=== PATIENT | male | born 1975 | race Caucasian/White ===

== ENCOUNTER → 2016-06-21 | Outpatient (CLI) | payer BC ==
[~2016-06-21] MED LIST: ATOR10TA82 PO; IBUP-103 PO
[2016-06-21 13:56] LABS: CHOLESTEROL 242 mg/dl (0-200); CHOLESTEROL/HDL RATIO 4.8; HDL CHOLESTEROL 50 mg/dl; TRIGLYCERIDES 81 mg/dl (0-150); VERY LOW DENSITY LIPOPROT CALC 16 mg/dl
== END | disposition home or self-care (01) ==
LOC: C.LABSPEC 12:30
PROVIDERS: ATTEND Internal Medicine
DX: E78.5 Hyperlipidemia, unspecified (principal)

== ENCOUNTER → 2016-12-28 | Outpatient (CLI) | payer BC ==
[~2016-12-28] MED LIST changes: -ATOR10TA82 PO; +ATOR10TA88 PO
[2016-12-28 13:23] LABS: ALT/SGPT 64 U/L (12-78); AST/SGOT 27 U/L (15-37); BLOOD UREA NITROGEN 10 mg/dl (7-18); BUN/CREATININE RATIO 9.4 (10-20); CALCIUM 9.1 mg/dl (8.5-10.1); CARBON DIOXIDE 27 mmol/L (21-32); CHLORIDE 107 mmol/L (98-107); CHOLESTEROL 228 mg/dl (0-200); CREATININE 1.08 mg/dl (0.60-1.40); GLUCOSE 83 mg/dl (70-99); POTASSIUM 4.3 mmol/L (3.5-5.1); SODIUM 140 mmol/L (136-145); TRIGLYCERIDES 114 mg/dl (0-150); VERY LOW DENSITY LIPOPROT CALC 23 mg/dl
[2016-12-28 13:25] LABS: ALB/GLOB RATIO 1.2 (0.9-2); ALKALINE PHOSPHATASE 94 U/L (45-117); HDL CHOLESTEROL 38 mg/dl
== END | disposition home or self-care (01) ==
LOC: C.LABSPEC 12:04
PROVIDERS: ATTEND Internal Medicine
DX: E78.5 Hyperlipidemia, unspecified (principal)

== ENCOUNTER → 2017-07-05 | Outpatient (CLI) | payer OTHER ==
[~2017-07-05] MED LIST changes: +ATOR10TA82 PO; -ATOR10TA88 PO
[2017-07-05 14:04] LABS: CHOLESTEROL 211 mg/dl (0-200); LDL CHOLESTEROL (DIRECT) 165 mg/dl
== END | disposition home or self-care (01) ==
LOC: C.LABSPEC 12:23
PROVIDERS: ATTEND Internal Medicine
DX: E78.5 Hyperlipidemia, unspecified (principal)

== ENCOUNTER 2017-10-15 13:06 | Emergency (ER) | payer OTHER ==
[~2017-10-15] VITALS: Ht 172.7 cm; Wt 80.3 kg
[2017-10-15 13:10] VITALS: TEMP 36.8; Ht 172.7 cm; Wt 80.3 kg
[2017-10-15 13:20] VITALS: O2SAT 97
[2017-10-15] MEDS ORDERED: RANITIDINE HCL 150 MG TAB ONE (13:21)
[2017-10-15] MEDS ORDERED: DiphenhydrAMINE HCL 50 MG/ML VIAL ONE (13:21)
[2017-10-15] MEDS ORDERED: METHYLPREDNISOLONE 125 MG VIAL IV STA (13:23)
[2017-10-15] MEDS ORDERED: DiphenhydrAMINE HCL 50 MG/ML VIAL IV STA (13:23)
[2017-10-15] MEDS ORDERED: SODIUM CHLORIDE 0.9% 1000ML 1,000 ML IV STA (13:23)
[2017-10-15] MEDS ORDERED: FAMOTIDINE 20MG/5ML IV PUSH IV STA (13:23)
[2017-10-15] MEDS ORDERED: FAMOTIDINE 20MG/5ML IV PUSH IV ONE (13:24)
[2017-10-15] MEDS ORDERED: METHYLPREDNISOLONE 125 MG VIAL ONE (13:25)
--- NOTE | 2017-10-15 13:45 | EMERGENCY ROOM VISIT NOTE ---
ED Visit Note First contact with patient: 13:17 CHIEF COMPLAINT: Allergic reaction to hornet stings HISTORY OF PRESENTING ILLNESS: This is a 41-year-old male who presents to the emergency department by private vehicle with complaint of allergic reaction after being stung several times by hornets around 12:15 PM today. Patient states that he got into a hornet's nest while working in the garage, got stung on his left ear and the back of his head 4 or 5 times. He states that he has been feeling pressure in his ears, some tightness in his throat, and breaking out in hives and itching all over. He denies any pain, but rates his discomfort from the itching as 6/10. He denies any history of severe allergic reaction to bee stings in the past. He denies any family history of anaphylaxis or use of EpiPen that he knows of. He denies any facial, lip, or tongue swelling. He denies any shortness of breath, wheezing, chest pain, dizziness or syncope. He denies any nausea or vomiting. He did not take any medications for his symptoms prior to arrival. REVIEW OF SYSTEMS: A complete 10 point review of systems was reviewed with the patient with pertinent positives and negatives as per history of present illness. All else were negative. PAST MEDICAL HISTORY: Reviewed in chart, see problem list below. SOCIAL HISTORY: Lives at home. He denies tobacco use. ALLERGIES: Reviewed in chart, see below PHYSICAL EXAM: CONSTITUTIONAL: Pleasant and cooperative. No acute distress. Airway patent with nonlabored breathing. Well appearing and well nourished. HEENT: Normocephalic, atraumatic. Pupils equal, round and reactive to light, EOMI. TMs normal. The left external ear helix is erythematous but not swollen. Pharynx normal with no erythema or edema. No perioral or periorbital swelling. NECK: Supple, full active range of motion without discomfort. RESPIRATORY: Clear to auscultation bilaterally with no wheezing, crackles, rhonchi. No stridor. Equal expansion bilaterally. CARDIOVASCULAR: Tachycardic. Regular rhythm with no murmurs, rubs or gallops. Normal peripheral perfusion. No edema. GASTROINTESTINAL: Soft, nontender, nondistended. No palpable masses or HSM. Bowel sounds present in all quadrants. MUSCULOSKELETAL: Full range of motion of all joints without discomfort. INTEGUMENTARY: Diffuse urticarial rash on the chest, back, and bilateral arms appears to be rapidly spreading. Patient reports pruritic. NEUROLOGIC: Alert and oriented X 4 with normal affect. Normal strength and sensation in all 4 extremities. No focal neurologic deficits noted. Normal speech. Normal gait observed. ED COURSE AND MEDICAL DECISION MAKING: CC: Patient presenting with complaint of allergic reaction to hornet stings DIFFERENTIAL DIAGNOSIS: Includes, but not limited to allergic reaction, contact dermatitis, bee sting, anaphylaxis, among others. MEDICATION RECONCILIATION: I attest that I have personally reviewed the patient 's current medication list. INITIAL VITAL SIGNS REVIEW: I reviewed the patient's initial vital signs and interpret them as follows: T: Afebrile; BP: Hypertensive; HR: Tachycardic; RR : Mildly tachypneic; Pulse Ox: Within normal limits on room air. Blood pressure screening: The patient was found to have an elevated blood pressure, which was felt to be situational. SUMMARY: Patient was evaluated at bedside, history and physical exam performed. Patient is alert and oriented, in no acute distress, with patent airway, resting calmly in stretcher. There is no facial or intraoral swelling appreciated on exam. Lungs are clear, no wheezing or stridor on exam. There is a diffuse urticarial rash consistent with an allergic reaction on the torso and arms. Orders were placed at bedside for IV saline bolus for hydration, IV Benadryl 50 mg, IV Pepcid 20 IV mg, Solu-Medrol 125 mg, and patient placed on continuous cardiac monitoring to evaluate and treat for allergic reaction. Patient discussed with Dr. Zepeda, who agrees with my assessment and plan. Patient was monitored in the emergency department for more than 2 hours, with improved symptoms. Patient reassessed multiple times throughout ED stay, he has remained stable, tachycardia has resolved after the IV fluids, his itching and hives are receding after medications and he states that his throat tightness has fully resolved. Lungs remain clear and airway remains patent on repeat assessment. Patient was updated on all results and plan for discharge, he was encouraged to follow closely with his PCP. Rx for prednisone was sent to the pharmacy, patient was educated regarding this medication. Patient was also given strict return precautions should his symptoms worsen, he verbalized understanding. Patient was discharged home in stable condition and ambulatory. (Emma Medina CRNP) First contact with patient: 13:17 (Danny Zepeda M.D.) Problem List Medical Problems: (1) Hyperlipidemia Status: Chronic (Danny Zepeda M.D.) Current/Historical Medications Scheduled Atorvastatin (Lipitor), 10 MG PO DAILY Prednisone (Prednisone Tab), 2 TABS PO DAILY Allergies Coded Allergies: Macrolides (Unverified Allergy, Mild, 10/15/17) Vital Signs Date Time Temp Pulse Resp B/P (MAP) Pulse Ox O2 Delivery O2 Flow Rate FiO2 10/15/17 15:37 89 20 125/81 97 10/15/17 15:11 94 21 97 10/15/17 15:00 125/81 10/15/17 14:41 96 14 99 10/15/17 14:36 88 18 97 10/15/17 14:31 126/83 10/15/17 14:06 92 20 99 10/15/17 14:02 137/68 10/15/17 13:36 105 16 98 10/15/17 13:31 137/86 10/15/17 13:30 101 10/15/17 13:28 139/88 10/15/17 13:20 97 Room Air 10/15/17 13:20 97 Room Air 10/15/17 13:10 36.8 119 22 140/95 97 Room Air (Danny Zepeda M.D.) Medications Administered Medications (Trade) Dose Ordered Sig/Bipin Route Start Time Stop Time Status Last Admin Dose Admin Diphenhydramine HCl (Benadryl Inj) 50 mg STK-MED ONCE .ROUTE 10/15/17 13:21 10/15/17 13:22 DC 10/15/17 13:32 50 MG Famotidine (Pepcid 20mg Iv Push) 20 mg NOW STAT IV 10/15/17 13:23 10/15/17 13:26 DC 10/15/17 13:32 20 MG Sodium Chloride 1,000 ml @ 999 mls/hr Q1H1M STAT IV 10/15/17 13:23 10/15/17 14:23 DC 10/15/17 13:32 999 MLS/HR Methylprednisolone Sodium Succinate (Solu-Medrol IV) 125 mg NOW STAT IV 10/15/17 13:23 10/15/17 13:26 DC 10/15/17 13:31 125 MG (Danny Zepeda M.D.) Departure Information Impression Primary Impression: Allergic reaction Additional Impression: Hornet sting Dispostion Home / Self-Care Condition GOOD Prescriptions Prednisone (Prednisone Tab) 20 Mg Tab 2 TABS PO DAILY for 4 Days, #8 TAB Prov: Emma Medina CRNP 10/15/17 Referrals Mario Ortiz M.D. (PCP) Patient Instructions ED Anaphylaxis General, ED Bite Sting Insect Gen Allergic React, [facility] Additional Instructions You have been treated in the Emergency Department for an Allergic Reaction. You have been treated and monitored in the Emergency Department appropriately. You should take Benadryl (diphenhydramine) 25 mg tablets 1-2 tablets every 4-6 hours for the next few days as needed for itching or hives. This medication is [id number] and you will NOT need a prescription to purchase this at your local pharmacy. You should also take Claritin or Zyrtec 1 tablet daily for the next 7 days to help reduce allergy symptoms. This medication is also available over-the- counter and you do not need a prescription. You have been prescribed Prednisone 40 mg to be taken orally once a day for the next 4 days. This is an anti-inflammatory medicine to be used to help minimize your symptoms. You should take the COMPLETE course of the medication. Drink plenty of fluids to stay well hydrated. Please follow-up with your primary care provider in 2-3 days for reevaluation. Return to the Emergency Department if any of your symptoms return, or if you develop any of the following symptoms: wheezing, tongue or face swelling, tightness in your throat, shortness of breath or inability to catch your breath , severe dizziness or passing out, or any other concerns. Work Instructions Return To Work: 1 day (Emma Medina CRNP) Problem Qualifiers Primary Impression: Allergic reaction Encounter type: initial encounter Qualified Codes: T78.40XA - Allergy, unspecified, initial encounter Additional Impression: Hornet sting Encounter type: initial encounter Injury intent: accidental or unintentional Qualified Codes: T63.451A - Toxic effect of venom of hornets, accidental (unintentional), initial encounter
[2017-10-15] MEDS ORDERED: PRED20TA2 PO (15:21)
[2017-10-15 15:37] VITALS: BP 125/81; PULSE 89; O2SAT 97
== END 2017-10-15 15:38 | disposition home or self-care (01) ==
LOC: C.EDB 13:07
DX: T63.451A Toxic effect of venom of hornets, accidental (unintentional), initial encounter (principal); R00.0 Tachycardia, unspecified; E78.5 Hyperlipidemia, unspecified; Z79.899 Other long term (current) drug therapy; Z88.1 Allergy status to other antibiotic agents